=== PATIENT | female | born 1965 | race Two or more races ===

== ENCOUNTER 2017-06-27 08:21 | Emergency (ER) | payer OTHER ==
[2017-06-27 08:36] VITALS: TEMP 98.1; BMI 27.4
--- NOTE | 2017-06-27 08:53 | PDOC ---
History of Present Illness - General Chief Complaint: Syncope/Near Syncope Stated Complaint: NEAR SYNCOPE/ SYNCOPE Time Seen by Provider: 06/27/17 08:36 - History of Present Illness Initial Comments: 06/27/17 08:46 CHIEF COMPLAINT: syncope HISTORY OF PRESENT ILLNESS: 52 yo F with hx of DM, HTN, HLD presents to ED s/p witnessed syncopal episode at work. 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 At that point she passed out and was told that she did hit the back of her head on the ground. She states she "wasn't out for very long" and when she woke up she felt "a little weak" as EMS arrived, but shortly after she felt well enough to refuse EMS transport and came "by myself in a taxi." She denies any dizziness, headache, chest pain, shortness of breath, change in vision, or weakness at this time, but does complain of pain to L shoulder. She states she has been taking all of her daily medications as prescribed. PAST MEDICAL HISTORY: DM, HTN, HLD FAMILY HISTORY: Denies SOCIAL HISTORY: Denies tobacco, alcohol, illicit drug use. SURGICAL HISTORY: Denies ALLERGIES: No known drug allergies REVIEW OF SYSTEMS General/Constitutional: Denies fever or chills. Denies weakness, weight change. HEENT: Denies change in vision. Denies ear pain or discharge. Denies sore throat. Cardiovascular: Denies chest pain or shortness of breath. Respiratory: Denies cough, wheezing, or hemoptysis. Gastrointestinal: Denies nausea, vomiting, diarrhea or constipation. Denies rectal bleeding. Genitourinary: Denies dysuria, frequency, or change in urination. Musculoskeletal: Denies joint or muscle swelling or pain. Denies neck or back pain. Skin and breasts: Denies rash or easy bruising. Neurologic: "I passed out at work." Denies headache, vertigo,or loss of sensation. PHYSICAL EXAM General Appearance: Well-appearing, appropriately dressed. No apparent distress. HEENT: EOMI, PERRLA, normal ENT inspection, normal voice, TMs normal, pharynx normal. No conjunctival pallor. No photophobia, scleral icterus. Neck: Supple. Trachea midline. No tenderness, rigidity, carotid bruit, stridor , lymphadenopathy, or thyromegaly. Respiratory/Chest: Lungs CTAB. Cardiovascular: RRR. S1, S2. Gastrointestinal/Abdominal: Normal bowel sounds. Abdomen soft, non-distended. No tenderness or rebound tenderness. No organomegaly, pulsatile mass, guarding , hernia, hepatomegaly, splenomegaly. Musculoskeletal/Extremities: Point tenderness to lateral aspect of left clavicle. Normal inspection. FROM of all extremities, normal capillary refill. Pelvis Stable. No CVA tenderness. No tenderness to extremities, pedal edema, swelling, erythema or deformity. Integumentary: Appropriate color, dry, warm. No cyanosis, erythema, jaundice or rash Neurologic: [employer] II-XII intact. Fully oriented, alert. Appropriate mood/affect. Motor strength 5/5. No appreciable EOM palsy, facial droop or sensory deficit. Past History - Past Medical History Allergies/Adverse Reactions: Allergies Allergy/AdvReac Type Severity Reaction Status Date / Time No Known Allergies Allergy Verified 06/27/17 08:30 Home Medications: Ambulatory Orders Glipizide 5 mg PO BID 06/27/17 Lisinopril 5 mg PO DAILY 06/27/17 Metformin HCl 500 mg PO BID 06/27/17 Rosuvastatin Calcium [Crestor] 5 mg PO DAILY 06/27/17 COPD: No DVT: No Diabetes: Yes (NIDDM) HTN: Yes Hypercholesterolemia: Yes - Immunization History Immunization Up to Date: Yes - Suicide/Smoking/Psychosocial Hx Smoking History: Never smoked Information on smoking cessation initiated: No Hx Alcohol Use: No Drug/Substance Use Hx: No Substance Use Type: None *Physical Exam - Vital Signs Last Vital Signs Temp Pulse Resp BP Pulse Ox 98.1 F 94 H 16 143/93 98 06/27/17 08:32 06/27/17 12:15 06/27/17 12:15 06/27/17 12:15 06/27/17 12:15 ED Treatment Course - LABORATORY CBC & Chemistry Diagram: 06/27/17 09:09 06/27/17 09:09 - ADDITIONAL ORDERS Additional order review: Laboratory Results 06/27/17 06/27/17 06/27/17 13:28 12:51 09:09 PT with INR INR D-Dimer 552 H Sodium Potassium Chloride Carbon Dioxide Anion Gap BUN Creatinine Creat Clearance w eGFR Random Glucose Calcium Total Bilirubin AST ALT Alkaline Phosphatase Creatine Kinase Troponin I < 0.02 Total Protein Albumin Urine Color Straw Urine Appearance Clear Urine pH 6.0 Ur Specific [place] 1.034 Urine Protein Negative Urine Glucose (UA) 1+ H Urine Ketones Negative Urine Blood 3+ H Urine Nitrite Negative Urine Bilirubin Negative Urine Urobilinogen Negative Ur Leukocyte Esterase Negative Urine WBC (Auto) <1 Urine RBC (Auto) 3 Ur Epithelial Cells Rare Urine Mucus Rare 06/27/17 06/27/17 09:09 09:09 PT with INR 11.20 INR 0.99 D-Dimer Sodium 138 Potassium 4.7 Chloride 102 Carbon Dioxide 28 Anion Gap 8 BUN 12 Creatinine 0.7 Creat Clearance w eGFR > 60 Random Glucose 195 H Calcium 9.2 Total Bilirubin 0.2 AST 29 ALT 51 Alkaline Phosphatase 48 Creatine Kinase 67 Troponin I < 0.02 Total Protein 7.9 Albumin 3.8 Urine Color Urine Appearance Urine pH Ur Specific [place] Urine Protein Urine Glucose (UA) Urine Ketones Urine Blood Urine Nitrite Urine Bilirubin Urine Urobilinogen Ur Leukocyte Esterase Urine WBC (Auto) Urine RBC (Auto) Ur Epithelial Cells Urine Mucus 06/27/17 09:09 RBC 4.26 MCV 83.2 MCHC 33.6 RDW 13.3 MPV 7.6 Neutrophils % 70.2 Lymphocytes % 22.4 Monocytes % 5.3 Eosinophils % 1.6 Basophils % 0.5 - RADIOLOGY Radiology Studies Ordered: Category Date Time Status CHEST CTA [CT] Stat CT Scan 06/27/17 10:[address] WITHOUT CONTRAST [CT] Stat CT Scan 06/27/17 09:30 Completed SHOULDER-LEFT [RAD] Stat Radiology 06/27/17 09:30 Taken - Medications Given in the ED: ED Medications Discontinued Medications Generic Name Dose Route Start Last Admin Trade Name Freq PRN Reason Stop Dose Admin Sodium Chloride 1,000 ml 06/27/17 10:42 06/27/17 10:53 Normal Saline - IV 06/27/17 10:43 1,000 ml ONCE ONE Administration Medical Decision Making - Medical Decision Making 06/27/17 09:43 52 yo F with hx of DM, HTN, HLD presents to ED s/p witnessed syncopal episode at work. -labs -ekg -head ct, shoulder x-ray 06/27/17 10:22 D-dimer 552, will order CTA to r/o PE. 06/27/17 13:22 CTA negative for PE. 0.5 cm right lower lobe superior segment subpleural nodule is noted. Correlate with follow up CT to evaluate stability. Partially imaged liver demonstrates nonspecific multifocal hypodensity which could be due to neoplastic disease verus incidental focal fatty infiltration. Additional evaluation utilizing contrast enhanced multiphase MRI or CT is suggested. A 0.6 cm left renal hypodense intracortical focus is seen which is also difficult to characterize on the basis of the current exam. The hypodense focus may also be further evaluated on subsequent MRI/CT studies. Patient reassessed, at this time she states she feels fine. Awaiting repeat trop, will dc if negative. *DC/Admit/Observation/Transfer Diagnosis at time of Disposition: Syncope - Discharge Dispostion Disposition: HOME Condition at time of disposition: Stable Admit: No - Referrals Referrals: Nelson Moser MD [Staff Physician] - - Patient Instructions Printed Discharge Instructions: DI for Syncope in Adults (Fainting) Additional Instructions: Please follow up with your primary care doctor and neurology within the next 1- 2 weeks for continued monitoring and further evaluation of your fainting episode. If you develop any new headache, dizziness, weakness, difficulty speaking or swallowing, chest pain, shortness of breath, or any new or worsening symptoms, please return to the ER immediately. - Post Discharge Activity
[2017-06-27 09:33] LABS: BASO % 0.5 % (0-2.0); EOS % 1.6 % (0-4.5); HEMATOCRIT 35.5 % (32.4-45.2); HEMOGLOBIN 11.9 GM/dL (10.7-15.3); LYMPH % 22.4 % (8-40); MCHC 33.6 g/dl (32.0-36.0); MEAN CELL VOLUME 83.2 fl (80-96); MEAN PLT VOLUME 7.6 fl (7.5-11.1); MONO % 5.3 % (3.8-10.2); NEUT % 70.2 % (42.8-82.8); PLATELET COUNT 339 K/MM3 (134-434); RBC 4.26 M/mm3 (3.60-5.2); RDW 13.3 % (11.6-15.6); WHITE BLOOD COUNT 7.2 K/mm3 (4.0-10.0)
[2017-06-27 09:51] LABS: INR 0.99 (0.82-1.09); PROTHROMBIN TIME (PATIENT) 11.2 SEC (9.7-13.0)
[2017-06-27 10:06] LABS: ALBUMIN 3.8 g/dl (3.4-5.0); ANION GAP 8 (8-16); BLOOD UREA NITROGEN 12 mg/dL (7-18); CALCIUM 9.2 mg/dL (8.5-10.1); CHLORIDE 102 mmol/L (98-107); CO2 28 mmol/L (21-32); CREATININE 0.7 mg/dL (0.55-1.02); GLUCOSE,RANDOM 195 mg/dL (74-106); POTASSIUM 4.7 mmol/L (3.5-5.1); SGOT/AST 29 U/L (15-37); SGPT/ALT 51 U/L (12-78); SODIUM 138 mmol/L (136-145)
[2017-06-27 10:11] LABS: ALK PHOS 48 U/L (45-117); BILIRUBIN,TOTAL 0.2 mg/dL (0.2-1.0); TOT PROT 7.9 g/dl (6.4-8.2)
--- NOTE | 2017-06-27 10:12 | EKG ---
Test Reason : Blood Pressure : / mmHG Vent. Rate : 079 BPM Atrial Rate : 079 BPM P-R Int : 160 ms QRS Dur : 092 ms QT Int : 376 ms P-R-T Axes : 050 -33 007 degrees QTc Int : 431 ms NORMAL SINUS RHYTHM LEFT AXIS DEVIATION MODERATE VOLTAGE CRITERIA FOR LVH, MAY BE NORMAL VARIANT ABNORMAL ECG NO PREVIOUS ECGS AVAILABLE Confirmed by MD JACEK, SALTY ([id number]) on 06/27/2017 10:12:06 AM Referred By: Confirmed By:SALTY READ MD
[2017-06-27] MEDS ORDERED: SODIUM CHLORIDE 0.9% 500 ML INFUS.BAG IV ONE (10:42)
--- NOTE | 2017-06-27 11:47 | PDOC ---
*Physical Exam - Vital Signs Last Vital Signs Temp Pulse Resp BP Pulse Ox 98.1 F 77 16 130/82 100 06/27/17 08:32 06/27/17 08:32 06/27/17 08:32 06/27/17 08:32 06/27/17 08:32 ED Treatment Course - LABORATORY CBC & Chemistry Diagram: 06/27/17 09:09 06/27/17 09:09 - ADDITIONAL ORDERS Additional order review: Laboratory Results 06/27/17 06/27/17 06/27/17 09:09 09:09 09:09 PT with INR 11.20 INR 0.99 D-Dimer 552 H Sodium 138 Potassium 4.7 Chloride 102 Carbon Dioxide 28 Anion Gap 8 BUN 12 Creatinine 0.7 Creat Clearance w eGFR > 60 Random Glucose 195 H Calcium 9.2 Total Bilirubin 0.2 AST 29 ALT 51 Alkaline Phosphatase 48 Creatine Kinase 67 Troponin I < 0.02 Total Protein 7.9 Albumin 3.8 06/27/17 09:09 RBC 4.26 MCV 83.2 MCHC 33.6 RDW 13.3 MPV 7.6 Neutrophils % 70.2 Lymphocytes % 22.4 Monocytes % 5.3 Eosinophils % 1.6 Basophils % 0.5 - Medications Given in the ED: ED Medications Discontinued Medications Generic Name Dose Route Start Last Admin Trade Name Freq PRN Reason Stop Dose Admin Sodium Chloride 1,000 ml 06/27/17 10:42 06/27/17 10:53 Normal Saline - IV 06/27/17 10:43 1,000 ml ONCE ONE Administration Medical Decision Making - Medical Decision Making 06/27/17 11:47 Patient seen and evaluated with the nurse practitioner. I agree with the overall evaluation, assessment, and management with the following summary of visit: 52-year-old female with syncope with prodrome, no cardiac pulmonary complaints are positive head injury. EKG nonischemic with normal intervals Labs are within normal limits but d-dimer slightly elevated We'll check CT, check second troponin, dispo accordingly *DC/Admit/Observation/Transfer Diagnosis at time of Disposition: Syncope Qualifiers: Syncope type: unspecified Qualified Code(s): R55 - Syncope and collapse - Discharge Dispostion Disposition: HOME Condition at time of disposition: Stable - Referrals Referrals: Nelson Moser MD [Staff Physician] - - Patient Instructions Printed Discharge Instructions: DI for Syncope in Adults (Fainting) Additional Instructions: Please follow up with your primary care doctor and neurology within the next 1- 2 weeks for continued monitoring and further evaluation of your fainting episode. If you develop any new headache, dizziness, weakness, difficulty speaking or swallowing, chest pain, shortness of breath, or any new or worsening symptoms, please return to the ER immediately. - Post Discharge Activity
[2017-06-27 13:36] LABS: URINE APPEARANCE CLEAR; URINE BILIRUBIN NEGATIVE (<2.0 mg/dL); URINE BLOOD 3+ (NEGATIVE); URINE COLOR STRAW; URINE GLUCOSE (UA) 1+ (NEGATIVE); URINE KETONE NEGATIVE (NEGATIVE); URINE LEUK ESTERASE NEGATIVE (NEGATIVE); URINE NITRITE NEGATIVE (NEGATIVE); URINE PROTEIN NEGATIVE (NEGATIVE); URINE UROBILINOGEN NEGATIVE mg/dL (0.2-1.0)
[2017-06-27 13:48] LABS: EPI CELLS RARE /HPF (FEW); URINE MUCUS RARE
[2017-06-27 15:17] VITALS: BP 140/78; PULSE 90
--- NOTE | 2017-06-27 16:23 | EKG ---
Test Reason : Blood Pressure : / mmHG Vent. Rate : 084 BPM Atrial Rate : 084 BPM P-R Int : 164 ms QRS Dur : 096 ms QT Int : 372 ms P-R-T Axes : 033 -35 006 degrees QTc Int : 439 ms NORMAL SINUS RHYTHM LEFT AXIS DEVIATION VOLTAGE CRITERIA FOR LEFT VENTRICULAR HYPERTROPHY ABNORMAL ECG WHEN COMPARED WITH ECG OF 27-JUN-2017 08:57, NO SIGNIFICANT CHANGE WAS FOUND Confirmed by MD JACEK, SALTY ([id number]) on 06/27/2017 4:23:09 PM Referred By: Confirmed By:SALTY READ MD
== END 2017-06-27 15:17 | disposition home or self-care (01) ==
LOC: JER 08:21 → SUPCPDRO 08:21 → JER 15:17
DX: R55 Syncope and collapse (principal); I10 Essential (primary) hypertension; E78.00 Pure hypercholesterolemia, unspecified; E11.9 Type 2 diabetes mellitus without complications; Z79.84 Long term (current) use of oral hypoglycemic drugs
CPT/HCPCS: 36415; 70450-TC; 71275-TC; 73030-TC-LT-FY; 80053; 81003; 81015; 82550; 83735; 84484; 85025; 85379; 85610; 87086; 87186; 93005; 93010; 99284-25

== ENCOUNTER 2022-03-08 11:50 | Emergency (ER) | payer OTHER ==
[2022-03-08 12:22] VITALS: BP 123/65; PULSE 88; RESP 20; TEMP 99; BMI 25.2
[2022-03-08] MEDS ORDERED: IBUPROFEN 600 MG TABLET (FP) PO ONE ×2 (13:11→13:31)
== END 2022-03-08 13:55 | disposition home or self-care (01) ==
LOC: JERFT 11:50
DX: M54.50 Low back pain, unspecified (principal); V79.50XA Passenger on bus injured in collision with unspecified motor vehicles in traffic accident, initial encounter
CPT/HCPCS: 99283-25